=== PATIENT | female | born 1980 | race American Indian/Alaskan Native ===

== ENCOUNTER 2017-03-10 18:47 | Emergency (ER) | payer BC, OTHER ==
--- NOTE | 2017-03-10 18:59 | EDM.PDOC ---
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 poison control contacted and closest match is nortryptyline, rec' ekg for wide QRS. - Related Data Allergies Allergy/AdvReac Type Severity Reaction Status Date / Time Penicillins Allergy Hives Verified 03/10/17 20:32 Home Meds: Home Meds Acetaminophen [Tylenol Extra Strength] 1,000 mg PO Q8H PRN 05/16/13 [History] Social & Family History - Tobacco Use Second Hand Smoke Exposure: No - Recreational Drug Use Recreational Drug Use: No Review of Systems - Review of Systems Review Of Systems: ROS reveals no pertinent complaints other than HPI. ED EXAM, GENERAL - Physical Exam Exam: See Below Exam Limited By: No Limitations General Appearance: Alert, WD/WN, Mild Distress, Other (ankle pain) Ears: Hearing Grossly Normal Throat/Mouth: Normal Voice, No Airway Compromise Head: Atraumatic Neck: Non-Tender, Full Range of Motion Respiratory/Chest: No Respiratory Distress Cardiovascular: Regular Rate, Rhythm GI/Abdominal: Soft, Non-Tender Extremities: Other (right ankle swollen tender R/P, NV wnl, gait limited to pain ) Neurological: Alert, Oriented, Normal Cognition, No Motor/Sensory Deficits Psychiatric: Tearful Skin Exam: Warm, Dry, Normal Color Lymphatic: No Adenopathy Course - Vital Signs Last Recorded V/S: Last Vital Signs Temp 36.6 C 03/10/17 18:53 Pulse 87 03/10/17 18:53 Resp 18 03/10/17 18:53 BP 120/72 03/10/17 18:53 Pulse Ox 98 03/10/17 18:53 - Orders/Labs/Meds Orders: Active Orders 24 hr Category Date Time Status EKG 12 Lead [EKG Documentation Completion] [RC] STAT Care 03/10/17 19:10 Active DRUG SCREEN URINE BIORAD [URCHEM] Stat Lab 03/10/17 19:02 Ordered HCG QUALITATIVE,URINE [URCHEM] Stat Lab 03/10/17 19:02 Ordered UA W/O MICROSCOPIC [URIN] Stat Lab 03/10/17 19:02 Ordered Sodium Chloride 0.9% [Normal Saline] 1,000 ml Med 03/10/17 20:57 Active IV .BOLUS Medication Orders Sodium Chloride (Normal Saline) 1,000 mls @ 999 mls/hr IV .BOLUS ONE Stop: 03/10/17 21:57 Last Admin: 03/10/17 21:01 Dose: 999 mls/hr Labs: Laboratory Tests 03/10/17 03/10/17 Range/Units 19:20 19:20 WBC 8.6 (5.0-10.0) 10^3/uL RBC 4.40 (4.2-5.4) 10^6/uL Hgb 13.2 (12.0-16.0) g/dL Hct 40.2 (37.0-47.0) % MCV 91.4 (80-100) fL MCH 30.0 (27.0-34.0) pg MCHC 32.8 L (33.0-35.0) g/dL Plt Count 282 (150-450) 10^3/uL Neut % (Auto) 59.7 (42.2-75.2) % Lymph % (Auto) 29.9 (20.5-50.1) % [place] % (Auto) 6.7 (2-8) % Eos % (Auto) 3.5 H (1.0-3.0) % Baso % (Auto) 0.2 (0.0-1.0) % Sodium 142 (135-145) mmol/L Potassium 4.3 (3.6-5.0) mmol/L Chloride 104 (101-111) mmol/L Carbon Dioxide 26.0 (21.0-31.0) mmol/L Anion Gap 16.3 BUN 7 (7-18) mg/dL Creatinine 0.7 (0.6-1.3) mg/dL Est Cr Clr Drug Dosing 117.23 mL/min Estimated GFR (MDRD) > 60 BUN/Creatinine Ratio 10.00 Glucose 113 H (74-105) mg/dL Calcium 8.5 (8.4-10.2) mg/dl Total Bilirubin 0.6 (0.2-1.0) mg/dL AST 18 (10-42) IU/L ALT 26 (10-60) IU/L Alkaline Phosphatase 63 (42-121) IU/L Total Protein 7.9 (6.7-8.2) g/dl Albumin 4.2 (3.2-5.5) g/dl Globulin 3.7 Albumin/Globulin Ratio 1.14 Salicylates < 4 Acetaminophen < 10 Ethyl Alcohol 233 mg/dL Meds: Medications Generic Name Dose Route Start Last Admin Trade Name Freq PRN Reason Stop Dose Admin Sodium Chloride 1,000 mls @ 999 mls/hr 03/10/17 20:57 03/10/17 21:01 Normal Saline IV 03/10/17 21:57 999 mls/hr .BOLUS ONE Administration Discontinued Medications Generic Name Dose Route Start Last Admin Trade Name Freq PRN Reason Stop Dose Admin Metoclopramide HCl 10 mg 03/10/17 20:57 03/10/17 21:02 Reglan IVPUSH 03/10/17 20:58 10 mg ONETIME ONE Administration Ondansetron HCl 4 mg 03/10/17 20:40 03/10/17 20:43 Zofran IV 03/10/17 20:41 4 mg ONETIME ONE Administration - Re-Assessments/Exams Free Text/Narrative Re-Assessment/Exam: 03/10/17 20:55 -Crisis called, Kimberlyn called back, request to suicided watch & detox and will f /u in am due to pt being intox. 03/10/17 21:45 pt's sister arrived, situation of detox & suicide watch with H.F f/u in am explained and sister understands. Departure - Departure Time of Disposition: 21:46 Disposition: DC/Tfer to Court of Law En 21 Condition: Good Clinical Impression: Suicidal behavior Qualifiers: Attempted self-injury: with attempted self-injury Qualified Code(s): T14.91XA - Suicide attempt, initial encounter Sprain of right ankle Qualifiers: Encounter type: initial encounter Involved ligament of ankle: calcaneofibular ligament Qualified Code(s): S93.411A - Sprain of calcaneofibular ligament of right ankle, initial encounter Alcohol intoxication Qualifiers: Complication of substance-induced condition: uncomplicated Qualified Code(s): F10.920 - Alcohol use, unspecified with intoxication, uncomplicated - Discharge Information Forms: ED Department Discharge Additional Instructions: 1) ELEVATE RIGHT LEG MUCH POSSIBLE TONIGHT 2) [facility] "[facility]" WILL BE EVALUATING PATIENT TOMORROW MORNING 3) MEDICALLY CLEARED FOR DETOX. - My Orders Last 24 Hours: My Active Orders 03/10/17 19:02 DRUG SCREEN URINE BIORAD [URCHEM] Stat HCG QUALITATIVE,URINE [URCHEM] Stat UA W/O MICROSCOPIC [URIN] Stat 03/10/17 19:10 EKG 12 Lead [EKG Documentation Completion] [RC] STAT 03/10/17 20:57 Sodium Chloride 0.9% [Normal Saline] 1,000 ml IV .BOLUS - Assessment/Plan Last 24 Hours: My Active Orders 03/10/17 19:02 DRUG SCREEN URINE BIORAD [URCHEM] Stat HCG QUALITATIVE,URINE [URCHEM] Stat UA W/O MICROSCOPIC [URIN] Stat 03/10/17 19:10 EKG 12 Lead [EKG Documentation Completion] [RC] STAT 03/10/17 20:57 Sodium Chloride 0.9% [Normal Saline] 1,000 ml IV .BOLUS
[2017-03-10 19:44] LABS: CHLORIDE,CL 104 mmol/L (101-111); SODIUM,NA 142 mmol/L (135-145)
[2017-03-10 19:45] LABS: ACETAMINOPHEN < 10
[2017-03-10] MEDS ORDERED: Ondansetron 4 MG/2 ML SDV IV ONE (20:40)
[2017-03-10] MEDS ORDERED: Metoclopramide 10 MG/2 ML SDV IVPUSH ONE (20:57)
[2017-03-10] MEDS ORDERED: Sodium Chloride 0.9% 1,000 ML IV ONE (20:57)
--- NOTE | 2017-03-13 11:31 | EKG ---
03/10/2017 - CECY JUNIOR R - EKG shows normal sinus rhythm, rate is 85 per minute. [facility] /[id number]
== END 2017-03-10 21:53 ==
LOC: DL.ED 18:47
DX: T14.91XA Suicide attempt, initial encounter (principal); S93.411A Sprain of calcaneofibular ligament of right ankle, initial encounter; F10.920 Alcohol use, unspecified with intoxication, uncomplicated; Z88.0 Allergy status to penicillin
CPT/HCPCS: 36415; 73610; 80053; 85025; 93005; 96361; 96374; 96375; 99285; G0480; J2405; J2765; J7030

== ENCOUNTER 2020-01-09 18:19 | Emergency (ER) | payer SELFPAY ==
[2020-01-09] MEDS ORDERED: Clindamycin HCl 150 MG Cap PO ONE (18:51)
--- NOTE | 2020-01-09 18:54 | EDM.PDOC ---
ED HPI GENERAL MEDICAL PROBLEM - General Chief Complaint: Upper Extremity Injury/Pain Stated Complaint: LEFT HAND LOOKS LIKE HAS GLASS/WORMINMIDDLE FINGER Time Seen by Provider: 01/09/20 18:52 Source of Information: Reports: Patient History Limitations: Reports: No Limitations - History of Present Illness INITIAL COMMENTS - FREE TEXT/NARRATIVE: pt states picked up broken glass few days ago and got infected and did squeeze it and got out some white thing looks like a worm. 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: Musculoskeletal History: Reports: None Neurological History: Reports: None Psychiatric History: Reports: Anxiety, Depression Endocrine/Metabolic History: Reports: None Hematologic History: Reports: None Immunologic History: Reports: None Oncologic (Cancer) History: Reports: None Dermatologic History: Reports: None - Infectious Disease History Infectious Disease History: Reports: Chicken Pox - Past Surgical History Head Surgeries/Procedures: Reports: None HEENT Surgical History: Reports: None GI Surgical History: Reports: None Social & Family History - Family History Family Medical History: Noncontributory Cardiac: Reports: Hypertension Endocrine/Metabolic: Reports: Diabetes, Type I - Tobacco Use Smoking Status *Q: Current Every Day Smoker Years of Tobacco use: 1 Packs/Tins Daily: 0.5 Second Hand Smoke Exposure: No - Caffeine Use Caffeine Use: Reports: Soda - Recreational Drug Use Recreational Drug Use: No Review of Systems - Review of Systems Review Of Systems: Comprehensive ROS is negative, except as noted in HPI. ED EXAM, GENERAL - Physical Exam Exam: See Below Exam Limited By: No Limitations General Appearance: Alert, WD/WN, Anxious Ears: Hearing Grossly Normal Throat/Mouth: Normal Voice, No Airway Compromise Head: Atraumatic Neck: Non-Tender, Full Range of Motion Respiratory/Chest: No Respiratory Distress Cardiovascular: Regular Rate, Rhythm GI/Abdominal: Soft, Non-Tender Extremities: Other (left middle tip puncture infected, NV wnl, ) Neurological: Alert, Oriented, Normal Cognition, Normal Gait, No Motor/Sensory Deficits Psychiatric: Anxious Skin Exam: Warm, Dry, Normal Color Lymphatic: No Adenopathy Course - Vital Signs Last Recorded V/S: Last Vital Signs Temp 35.9 C L 01/09/20 18:26 Pulse 69 01/09/20 18:26 Resp 16 01/09/20 18:26 BP 126/76 01/09/20 18:26 Pulse Ox 100 01/09/20 18:26 - Orders/Labs/Meds Meds: Medications Discontinued Medications Generic Name Dose Route Start Last Admin Trade Name Freq PRN Reason Stop Dose Admin Clindamycin HCl 300 mg 01/09/20 18:51 Cleocin PO 01/09/20 18:52 ONETIME ONE Departure - Departure Time of Disposition: 18:59 Disposition: Home, Self-Care 01 Condition: Good Clinical Impression: Wound infection - Discharge Information Forms: ED Department Discharge Additional Instructions: 1) keep wound clean dry covered 2) follow up at clinic rx given; clindamycin 300mg qid x 40 Sepsis Event Note (ED) - Evaluation Sepsis Screening Result: No Definite Risk - Focused Exam Vital Signs: Vital Signs Temp Pulse Resp BP Pulse Ox 01/09/20 18:26 35.9 C L 69 16 126/76 100
== END 2020-01-09 19:05 | disposition home or self-care (01) ==
LOC: DL.ED 18:19
DX: S61.233A Puncture wound without foreign body of left middle finger without damage to nail, initial encounter (principal); L08.9 Local infection of the skin and subcutaneous tissue, unspecified; F17.210 Nicotine dependence, cigarettes, uncomplicated; Z88.0 Allergy status to penicillin; W25.XXXA Contact with sharp glass, initial encounter
CPT/HCPCS: 99282; A9270

== ENCOUNTER 2021-01-29 07:54 | Emergency (ER) | payer OTHER ==
[2021-01-29] MEDS ORDERED: Sodium Chloride 0.9% 1,000 ML IV ONE (08:28)
[2021-01-29] MEDS ORDERED: Sodium Chloride 0.9% 10 ML Syringe FLUSH PRN (08:28)
--- NOTE | 2021-01-29 08:36 | EDM.PDOC ---
ED HPI GENERAL MEDICAL PROBLEM - General Chief Complaint: Back Pain or Injury Stated Complaint: LOWER BACK PAIN Time Seen by Provider: 01/29/21 08:28 Source of Information: Reports: Patient History Limitations: Reports: No Limitations - History of Present Illness INITIAL COMMENTS - FREE TEXT/NARRATIVE: 40 y/o F c/o R lower back pn x 3-4 days. The pain is sharp constant and non radiating, 6/10. She is concerned that she is constipated. Had a small bowel movement 2 days ago but has not had a descent bowel movement in a week. She has tried laxatives with no relief. She is 22 weeks and reports no vitamins but states a Dr. Apurva Ruelas has been taking care of her during her . Has tried tylenol for pain with some success. . Has been feeling clammy the last few days. Denies fever, cough, chills, drugs, etoh, cp, db, abd pn, neck pn, pelvic pn, feeling of contractions, extremity pn. Duration: Day(s): Location: Reports: Back Quality: Reports: Sharp Severity: Moderate Improves with: Reports: None Worsens with: Reports: None Right Lower Back Pain Score (Numeric/FACES): 5 - Related Data Allergies Allergy/AdvReac Type Severity Reaction Status Date / Time Penicillins Allergy Hives Verified 01/29/21 08:12 Home Meds: Home Meds Acetaminophen [Tylenol Extra Strength] 1,000 mg PO Q8H PRN 05/16/13 [History] Past Medical History HEENT History: Reports: Impaired Vision, Sinusitis Cardiovascular History: Reports: None Respiratory History: Reports: None Gastrointestinal History: Reports: Other (See Below) Other Gastrointestinal History: umbilical hernia Genitourinary History: Reports: None 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: Musculoskeletal History: Reports: None Neurological History: Reports: None Psychiatric History: Reports: Anxiety, Depression Endocrine/Metabolic History: Reports: None Hematologic History: Reports: None Immunologic History: Reports: None Oncologic (Cancer) History: Reports: None Dermatologic History: Reports: None - Infectious Disease History Infectious Disease History: Reports: Chicken Pox - Past Surgical History Head Surgeries/Procedures: Reports: None HEENT Surgical History: Reports: None GI Surgical History: Reports: None Social & Family History - Family History Family Medical History: No Pertinent Family History Cardiac: Reports: Hypertension Endocrine/Metabolic: Reports: Diabetes, Type I - Tobacco Use Tobacco Use Status *Q: Current Every Day Tobacco User Years of Tobacco use: 2 Packs/Tins Daily: 1 - Caffeine Use Caffeine Use: Reports: Coffee - Recreational Drug Use Recreational Drug Use: No ED ROS GENERAL - Review of Systems Review Of Systems: Comprehensive ROS is negative, except as noted in HPI. ED EXAM,LOWER BACK PAIN/INJURY - Physical Exam Exam: See Below Exam Limited By: No Limitations General Appearance: Alert Throat/Mouth: Normal Inspection, Normal Lips, Normal Teeth, Normal Gums, Normal Oropharynx, Normal Voice, No Airway Compromise Head: Atraumatic, Normocephalic Neck: Normal Inspection, Supple, Non-Tender, Full Range of Motion Respiratory/Chest: No Respiratory Distress, Lungs Clear, Normal Breath Sounds, No Accessory Muscle Use, Chest Non-Tender Cardiovascular: Normal Peripheral Pulses, Regular Rate, Rhythm, No Edema, No Gallop, No JVD, No Murmur, No Rub GI/Abdominal: Soft, Non-Tender (Female) Exam: Deferred Rectal (Female) Exam: Deferred Back Exam: Other (No tenderness over the R lower back pt states the pain feels like it is on the inside.) Extremities: Normal Inspection, Normal Range of Motion, Non-Tender, No Pedal Edema, Normal Capillary Refill Neurological: Alert, Normal Mood/Affect Psychiatric: Normal Affect, Normal Mood Skin Exam: Warm, Dry, Intact Course - Vital Signs Last Recorded V/S: Last Vital Signs Temp 97.0 F 01/29/21 08:13 Pulse 90 01/29/21 08:13 Resp 18 01/29/21 08:13 BP 96/59 L 01/29/21 08:13 Pulse Ox 97 01/29/21 08:13 - Orders/Labs/Meds Orders: Active Orders 24 hr Category Date Time Status Peripheral IV Care [RC] . DIRECTED Care 01/29/21 08:28 Active CULTURE URINE [RM] Stat Lab 01/29/21 08:30 Received STD PANEL 3 [REF] Stat Lab 01/29/21 08:59 Ordered Sodium Chloride 0.9% [Normal Saline] 1,000 ml Med 01/29/21 08:28 Active IV .BOLUS Sodium Chloride 0.9% [Saline Flush] Med 01/29/21 08:28 Active 10 ml FLUSH ASDIRECTED PRN Peripheral IV Insertion Adult [OM.PC] Stat Oth 01/29/21 08:28 Ordered Medication Orders Sodium Chloride (Normal Saline) 1,000 mls @ 999 mls/hr IV .BOLUS ONE Stop: 01/29/21 09:28 Last Admin: 01/29/21 08:40 Dose: 999 mls/hr Documented by: PHAM Sodium Chloride (Sodium Chloride 0.9% 10 Ml Syringe) 10 ml FLUSH ASDIRECTED PRN PRN Reason: Keep Vein Open Last Admin: 01/29/21 08:40 Dose: 10 ml Documented by: PHAM Labs: Laboratory Tests 01/29/21 01/29/21 01/29/21 Range/Units 08:30 08:30 08:36 WBC 9.9 (5.0-10.0) 10^3/uL RBC 3.13 L (4.2-5.4) 10^6/uL Hgb 9.8 L (12.0-16.0) g/dL Hct 29.6 L (37.0-47.0) % MCV 94.6 D (80-100) fL MCH 31.3 (27.0-34.0) pg MCHC 33.1 (33.0-35.0) g/dL Plt Count 235 (150-450) 10^3/uL Neut % (Auto) 76.6 H (42.2-75.2) % Lymph % (Auto) 11.3 L (20.5-50.1) % [place] % (Auto) 11.5 H (2-8) % Eos % (Auto) 0.5 L (1.0-3.0) % Baso % (Auto) 0.1 (0.0-1.0) % Sodium (136-145) mmol/L Potassium (3.5-5.1) mmol/L Chloride (98-107) mmol/L Carbon Dioxide (21-32) mmol/L Anion Gap (7-13) mEq/L BUN (7-18) mg/dL Creatinine (0.55-1.02) mg/dL Est Cr Clr Drug Dosing mL/min Estimated GFR (MDRD) BUN/Creatinine Ratio (No establ ref range) Glucose (70-99) mg/dL Calcium (8.5-10.1) mg/dL Total Bilirubin (0.2-1.0) mg/dL AST (15-37) U/L ALT (14-59) U/L Alkaline Phosphatase (46-116) U/L Total Protein (6.4-8.2) g/dL Albumin (3.4-5.0) g/dL Globulin Albumin/Globulin Ratio Urine Color Yellow (YELLOW) Urine Appearance Cloudy (CLEAR) Urine pH 6.5 (5.0-9.0) Ur Specific [place] 1.025 (1.005-1.030) Urine Protein 30 H (NEGATIVE) Urine Glucose (UA) Negative (NEGATIVE) Urine Ketones Negative (NEGATIVE) Urine Occult Blood Moderate H (NEGATIVE) Urine Nitrite Negative (NEGATIVE) Urine Bilirubin Negative (NEGATIVE) Urine Urobilinogen 2.0 H (0.2-1.0) mg/dL Ur Leukocyte Esterase Small H (NEGATIVE) Urine RBC 5-10 H (0-5) /HPF Urine WBC 40-50 H (0-5/HPF) /HPF Ur Epithelial Cells Few (NOT SEEN) /HPF Amorphous Sediment Few (NOT SEEN) /HPF Urine Bacteria Many H (0-FEW/HPF) /HPF Urine Mucus Rare (NOT SEEN) /LPF Urine Opiates Screen Negative (NEGATIVE) Ur Oxycodone Screen Negative (NEGATIVE) Urine Methadone Screen Negative (NEGATIVE) Ur Barbiturates Screen Negative (NEGATIVE) U Tricyclic Antidepress Negative (NEGATIVE) Ur Phencyclidine Scrn Negative (NEGATIVE) Ur Amphetamine Screen Positive H (NEGATIVE) U Methamphetamines Scrn Positive H (NEGATIVE) Urine MDMA Screen Negative (NEGATIVE) U Benzodiazepines Scrn Negative (NEGATIVE) Urine Cocaine Screen Negative (NEGATIVE) U Marijuana (THC) Screen Negative (NEGATIVE) 01/29/21 Range/Units 08:36 WBC (5.0-10.0) 10^3/uL RBC (4.2-5.4) 10^6/uL Hgb (12.0-16.0) g/dL Hct (37.0-47.0) % MCV (80-100) fL MCH (27.0-34.0) pg MCHC (33.0-35.0) g/dL Plt Count (150-450) 10^3/uL Neut % (Auto) (42.2-75.2) % Lymph % (Auto) (20.5-50.1) % [place] % (Auto) (2-8) % Eos % (Auto) (1.0-3.0) % Baso % (Auto) (0.0-1.0) % Sodium 136 (136-145) mmol/L Potassium 3.4 L (3.5-5.1) mmol/L Chloride 103 (98-107) mmol/L Carbon Dioxide 25 (21-32) mmol/L Anion Gap 11.4 (7-13) mEq/L BUN 5 L (7-18) mg/dL Creatinine 0.59 (0.55-1.02) mg/dL Est Cr Clr Drug Dosing 135.11 mL/min Estimated GFR (MDRD) > 60 BUN/Creatinine Ratio 8.5 (No establ ref range) Glucose 98 (70-99) mg/dL Calcium 7.6 L (8.5-10.1) mg/dL Total Bilirubin 0.2 (0.2-1.0) mg/dL AST 11 L (15-37) U/L ALT 14 (14-59) U/L Alkaline Phosphatase 96 (46-116) U/L Total Protein 5.7 L (6.4-8.2) g/dL Albumin 1.8 L (3.4-5.0) g/dL Globulin 3.9 Albumin/Globulin Ratio 0.46 Urine Color (YELLOW) Urine Appearance (CLEAR) Urine pH (5.0-9.0) Ur Specific [place] (1.005-1.030) Urine Protein (NEGATIVE) Urine Glucose (UA) (NEGATIVE) Urine Ketones (NEGATIVE) Urine Occult Blood (NEGATIVE) Urine Nitrite (NEGATIVE) Urine Bilirubin (NEGATIVE) Urine Urobilinogen (0.2-1.0) mg/dL Ur Leukocyte Esterase (NEGATIVE) Urine RBC (0-5) /HPF Urine WBC (0-5/HPF) /HPF Ur Epithelial Cells (NOT SEEN) /HPF Amorphous Sediment (NOT SEEN) /HPF Urine Bacteria (0-FEW/HPF) /HPF Urine Mucus (NOT SEEN) /LPF Urine Opiates Screen (NEGATIVE) Ur Oxycodone Screen (NEGATIVE) Urine Methadone Screen (NEGATIVE) Ur Barbiturates Screen (NEGATIVE) U Tricyclic Antidepress (NEGATIVE) Ur Phencyclidine Scrn (NEGATIVE) Ur Amphetamine Screen (NEGATIVE) U Methamphetamines Scrn (NEGATIVE) Urine MDMA Screen (NEGATIVE) U Benzodiazepines Scrn (NEGATIVE) Urine Cocaine Screen (NEGATIVE) U Marijuana (THC) Screen (NEGATIVE) Meds: Medications Generic Name Dose Route Start Last Admin Trade Name Freq PRN Reason Stop Dose Admin Sodium Chloride 1,000 mls @ 999 mls/hr 01/29/21 08:28 01/29/21 08:40 Normal Saline IV 01/29/21 09:28 999 mls/hr .BOLUS ONE Administration Sodium Chloride 10 ml 01/29/21 08:28 01/29/21 08:40 Sodium Chloride 0.9% 10 Ml Syringe FLUSH 10 ml ASDIRECTED PRN Administration Keep Vein Open Discontinued Medications Generic Name Dose Route Start Last Admin Trade Name Freq PRN Reason Stop Dose Admin Acetaminophen 650 mg 01/29/21 09:10 Acetaminophen 325 Mg Tab PO 01/29/21 09:11 NOW ONE Azithromycin 1,000 mg 01/29/21 09:08 Azithromycin 250 Mg Tab PO 01/29/21 09:09 ONETIME ONE Ceftriaxone Sodium 1 gm/ 0 gm 01/29/21 09:07 Lidocaine HCl 2.1 ml IM 01/29/21 09:08 ONETIME ONE - Re-Assessments/Exams Free Text/Narrative Re-Assessment/Exam: 01/29/21 09:15 OB came down and examined pt cleared her obstetrically. heart tones 145. OB RN believes pts symptoms are unrelated to . Discussed exam adn lab results with pt. Will order an STD send out panel to make sure pt does not have an STD. Instructed mother to stop using meth as it harms the baby. I offered the pt referral to [facility] or [facility] for her meth use. She declined referral. Departure - Departure Time of Disposition: 09:19 Disposition: Home, Self-Care 01 Condition: Good Clinical Impression: Methamphetamine abuse, STD (sexually transmitted disease) complicating , antepartum Qualifiers: Weeks of gestation: 22 weeks Qualified Code(s): Z3A.22 - 22 weeks gestation of - Discharge Information *PRESCRIPTION DRUG MONITORING PROGRAM REVIEWED*: Not Applicable *COPY OF PRESCRIPTION DRUG MONITORING REPORT IN PATIENT BRENDA: Not Applicable Instructions: Finding Treatment for Addiction, Bacteremia, Adult Forms: ED Department Discharge Additional Instructions: RX: vitamins Stop using meth as it is hurting your baby and you. If you cant stop using meth contact [facility] or [facility]. Use Tylenol for pain as needed. Establish care with an OB doctor next week. If any new symptoms or concerns develop contact your primary care facility or return to the ER. Sepsis Event Note (ED) - Focused Exam Vital Signs: Vital Signs Temp Pulse Resp BP Pulse Ox 01/29/21 08:13 97.0 F 90 18 96/59 L 97
[2021-01-29 08:54] LABS: BARBITURATES,URINE NEGATIVE (NEGATIVE); BENZODIAZEPINE,URINE NEGATIVE (NEGATIVE); MDMA (ECSTASY), URINE NEGATIVE (NEGATIVE); METHADONE,URINE NEGATIVE (NEGATIVE); METHAMPHETAMINES,URINE POSITIVE (NEGATIVE); OPIATES,URINE NEGATIVE (NEGATIVE); TCA,URINE NEGATIVE (NEGATIVE)
[2021-01-29 08:55] LABS: AMPHETAMINES,URINE POSITIVE (NEGATIVE); OXYCODONE,URINE NEGATIVE (NEGATIVE); PHENCYCLIDINE,URINE NEGATIVE (NEGATIVE)
[2021-01-29 09:01] LABS: ANION GAP 11.4 mEq/L (7-13); CHLORIDE,CL 103 mmol/L (98-107); SODIUM,NA 136 mmol/L (136-145)
[2021-01-29] MEDS ORDERED: cefTRIAXone 1 GM, Lidocaine 1% 2.1 ML IM ONE ×2 (09:07)
[2021-01-29] MEDS ORDERED: Azithromycin 250 MG Tab PO ONE (09:08)
[2021-01-29] MEDS ORDERED: Acetaminophen 325 MG Tab PO ONE (09:10)
[2021-02-02 14:47] LABS: C.TRACHOMATIS BY TMA Negative (Negative); N.GONORRHOEAE BY TMA Negative (Negative)
== END 2021-01-29 09:40 | disposition home or self-care (01) ==
LOC: DL.ED 07:54
DX: O98.312 Other infections with a predominantly sexual mode of transmission complicating pregnancy, second trimester (principal); O99.322 Drug use complicating pregnancy, second trimester; F15.10 Other stimulant abuse, uncomplicated; Z3A.22 22 weeks gestation of pregnancy; Z72.0 Tobacco use; Z88.0 Allergy status to penicillin
CPT/HCPCS: 36415; 80053; 80305; 81001; 85025; 87086; 87088; 87186; 87491; 87563; 87591; 96372; 99283; A9270; J0696; J7030

== ENCOUNTER 2021-05-15 01:26 | Inpatient (IN) | payer MEDICAID, OTHER ==
[2021-05-15] MEDS ORDERED: Carboprost Tromethamine 250 MCG/1 ML Amp IM PRN (01:52)
[2021-05-15] MEDS ORDERED: Lidocaine 1% 30 ML SDV INJECT PRN (01:52)
[2021-05-15] MEDS ORDERED: Misoprostol 400 MCG (4 X 100 MCG TAB) RECTAL PRN (01:52)
[2021-05-15] MEDS ORDERED: Ondansetron 4 MG/2 ML SDV IVPUSH PRN (01:52)
[2021-05-15] MEDS ORDERED: Methylergonovine 0.2 MG/1 ML Amp IM PRN (01:52)
[2021-05-15] MEDS ORDERED: ceFAZolin 2 GM in Premix Bag 1 BAG IV ONE (01:52)
[2021-05-15] MEDS ORDERED: Acetaminophen 325 MG Tab PO PRN (01:52)
[2021-05-15] MEDS ORDERED: Tranexamic Acid 1,000 MG in Sodium Chloride 0.9% 100 ML IV PRN (01:52)
[2021-05-15] MEDS ORDERED: Lactated Ringers 1,000 ML IV ONE (01:52)
[2021-05-15] MEDS ORDERED: Lactated Ringers 1,000 ML IV SCH (02:00)
[2021-05-15 02:21] LABS: AMPHETAMINES,URINE NEGATIVE (NEGATIVE); BARBITURATES,URINE NEGATIVE (NEGATIVE); BENZODIAZEPINE,URINE NEGATIVE (NEGATIVE); MDMA (ECSTASY), URINE NEGATIVE (NEGATIVE); METHADONE,URINE NEGATIVE (NEGATIVE); METHAMPHETAMINES,URINE POSITIVE (NEGATIVE); OPIATES,URINE NEGATIVE (NEGATIVE); OXYCODONE,URINE NEGATIVE (NEGATIVE); PHENCYCLIDINE,URINE NEGATIVE (NEGATIVE); TCA,URINE NEGATIVE (NEGATIVE)
[2021-05-15] MEDS: Oxytocin/Normal Saline 30 UNIT/500 ML BAG IV SCH ×2 (03:00→07:10)
[2021-05-15] MEDS ORDERED: fentaNYL 100 MCG/2 ML SDV ITHECAL ONE (03:15)
[2021-05-15] MEDS ORDERED: Sodium Chloride 0.9% 20 ML SDV ONE (03:15)
[2021-05-15] MEDS ORDERED: Sodium Bicarbonate 4.2% 2.5 MEQ/5 ML SDV ONE ×2 (03:15→03:28)
[2021-05-15] MEDS ORDERED: EPINEPHrine 1 MG/ML SDV ONE ×2 (03:15→03:28)
--- NOTE | 2021-05-15 03:16 | HP ---
PATIENT IDENTIFICATION: Yareli Sales is a 41-year-old, -0-0-6, intrauterine 37 and 5/7 weeks by ultrasound done today when admitted with no care, who presents with contractions and vaginal leaking. HISTORY OF PRESENT ILLNESS: The patient notes vaginal leaking and contractions starting on the evening of 05/14/2021 at 8 p.m., increasing in frequency and intensity to the point that contractions are felt every 2-3 minutes, felt in the lower abdomen and back, rated 8/10, associated with vaginal leaking described as clear in nature and most recent with some mild bloody show noted per nurses and upon presentation. The patient presented via ambulance. To put this in context, she has had no care. Admits to meth use approximately 3-4 days prior to admission, and used meth 3-4 times per week on average smoking it. Records called for, reviewed as below, and supplemented by patient history. Antepartum labs are being drawn. OB HISTORY: 1. 05/03/2002, 40 weeks 2 days, delivered term, spontaneous vaginal delivery, 9 pounds 9 ounces. 2. 09/06/2005, 39 and 1/7 weeks, delivered term, 6 pounds 10 ounces. 3. 09/27/2006, 41 and 3/7 weeks, term, 8 pounds 3 ounces. 4. 08/22/2010, 40 and 4/7 weeks, delivered term, 9 pounds 1 ounce. 5. 11/22/2011, 41 weeks, delivered term, spontaneous vaginal delivery, female, 10 pounds 10 ounces. 6. 04/04/2018, 39 and 2/7 weeks, term, spontaneous vaginal delivery, 8 pounds 15 ounces, female. ALLERGIES: Penicillin, states this gives her hives, but has had Rocephin and Ancef per chart review and receiving Ancef currently. MEDICATIONS: None. PAST MEDICAL/PAST SURGICAL HISTORY: Notable for wisdom teeth extraction in 2007, otherwise she denies any other chronic medical conditions such as diabetes, heart disease, lung disease, asthma, liver disease, or any disease requiring medications for longer than a month or hospitalizations. Blood transfusion was noted at last delivery per patient. FAMILY HISTORY: Negative for anesthesia problems, bleeding problems, or defects. SOCIAL HISTORY: Patient lives in [place] with her 5 children and 2 cats. She does smoke 6 cigarettes per day on average and use methamphetamine as above. REVIEW OF SYSTEMS: Otherwise fully reviewed and felt to be contributory as above. Patient denies any headaches, visual changes, upper abdominal pain, calf pain, lower leg pain, cough, cold, sore throat, runny nose, congestion; and otherwise review of systems fully reviewed and felt to be contributory as above. OBJECTIVE: Vital Signs: Blood pressure 114/78, heart rate 68, temperature 97.5, recheck 125/86, heart rate 78. Appearance: Female, appears her stated age, acting appropriate, nontoxic in appearance. Breathing through her contractions, but answering questions appropriately in between. HEENT: Head atraumatic. EOMs intact. PERRLA. No scleral icterus. No obvious otorhinorrhea. Mucous membranes moist. NECK: No obvious tenderness. LUNGS: Clear to auscultation bilaterally. No increased work of breathing. HEART: S1, S2. Regular rate and rhythm. ABDOMEN: Gravid, Rex's indeterminate, nontender, nondistended. Bowel sounds positive. umbilical hernia noted. No rebound, rigidity, or guarding. I was present during the ultrasound, did review vertex presentation, posterior placenta, and average ultrasound, age at 37 and 5/7 weeks with head well applied into the pelvis. : Normal external female genitalia. Normal position and presentation. Vaginal exam after ultrasound revealed no previa, did reveal her to be 7-8 cm, 100% effaced, 0 station, vertex suspected, and leaking clear fluid with mild bloody show noted on the pad underneath her. Extremities: No peripheral edema. No calf pain. Deep tendon reflexes 2 to 3 out of 4 bilaterally and symmetric in all extremities. Psychiatric: Mood and affect congruent. Judgment and insight intact. Skin: No obvious cyanosis, clubbing, or jaundice. NST was found to be reactive and reassuring with heart tone, baseline around the 145 to 150 range. Tocometer reveals contractions every 2 to 3 minutes when monitoring. Labs; no care labs are pending. Ultrasound noted as above and reviewed with tech and present during the evaluation. ASSESSMENT: 1. Intrauterine at 37 and 5/7 weeks by ultrasound today. 2. Active labor. 3. No care. 4. Positive admitted methamphetamine use, last use 3-4 days ago, and prior to that 3-4 times per week, smoking it during the . 5. No care. 6. Group B streptococcus unknown - Ancef given currently. 7. Allergies to penicillin. 8. Advanced maternal age. 9. Grand multip. 10.-0-0-6. PLAN: No care labs have been drawn. Ultrasound done as above. Vaginal exam as above. She is in active labor with spontaneous rupture of membranes at approximately 8 p.m. on 05/14/2021. At this time, we will continue to follow clinically and closely. Plans were discussed with the patient. We are awaiting the COVID swab and then we will get her into a regular room and proceed with further evaluations and treatments there as well. The patient understands and agrees with the above treatment plan. [facility] /[id number] MTDD
[2021-05-15] MEDS ORDERED: fentaNYL 100 MCG/2 ML SDV ONE (03:27)
--- NOTE | 2021-05-15 03:50 | PCM.SN.2 ---
- Free Text/Narrative Note: Intrathecal. Sitting position, sterile prep and drape. 1% lidocaine w bicarb for skinwheal to L2 L3 interspace. Introducer, 24 ga Pencan x 1. Pos CSF, neg heme, neg parasthesia. 1:1000 pf Epi wash, 20 mcg pf Sufenta, 30 mcg pf Fentanyl, 0.4 ml pf NS and 6 mg of 0.75% Marcaine injected after CSF aspiration. Pt to L la teral position. Procedure time 0315 to 0350
--- NOTE | 2021-05-15 04:44 | US ---
PROCEDURE INFORMATION: Exam: US After First Trimester, Transabdominal Exam date and time: 05/15/2021 1:56 AM Age: 41 years old Clinical indication: Lmp or gestational age (in weeks): 08/22/20; Other: PT is in labor w/no care; TECHNIQUE: Imaging protocol: Real-time transabdominal obstetrical ultrasound of the maternal pelvis and a second or third trimester with image documentation. COMPARISON: No relevant prior studies available. FINDINGS: Other findings: A limited study was obtained as the patient was in labor. Gestation: Single live intrauterine gestation. heart rate: Good cardiac activity is recorded at 160 beats minute. presentation: Cephalic Placenta: The placenta is posterior with no evidence of previa Amniotic fluid: Not measured BIOMETRY: Estimated due date (AUA): 05/29/2021 Gestational age (AUA): 37 weeks 5 days Estimated weight: 3297 +/-481 g. LMP percentile is 56% Biparietal diameter (BPD): 9.21 cm, 37 weeks 3 days Head circumference (HC): 33.21 cm, 38 weeks MATERNAL: Uterus: Unremarkable. Cervix: Unremarkable. IMPRESSION: A single fetus is seen in cephalic presentation with a mean gestational age of 37 weeks 5 days and an estimated weight 3297 +/-481 g.
[2021-05-15] MEDS ORDERED: Simethicone 80 MG Tab.Chew PO PRN (05:07)
[2021-05-15] MEDS ORDERED: Zolpidem 5 MG Tab PO PRN (05:07)
[2021-05-15] MEDS ORDERED: Diphtheria,Pertussis(Acell),Tetanus Vaccine 0.5 ML Syringe IM ONE (05:07)
[2021-05-15] MEDS ORDERED: Benzocaine/Menthol 20%-0.5% Spray 78 GM Cannister TOP PRN (05:07)
[2021-05-15] MEDS ORDERED: Oxytocin 10 Units/1 ML SDV IM PRN (05:07)
--- NOTE | 2021-05-15 07:15 | OBOUT ---
DATE: 05/15/2021 DATE AND TIME OF NST: 05/15/2021, 1:25 to 1:45. REASON FOR NST: 1. Intrauterine at 37-5/7 weeks by ultrasound today. 2. Active labor. 3. Positive meth use, 3 to 4 days ago, and prior to this 3 to 4 times per week smoking it. 4. No care. 5. GBS unknown-Ancef given currently. 6. Allergy to penicillin, received Ancef and Rocephin in the past without reaction. 7. Advanced maternal age. 8. Grand multiparity. 9. G7, P6-0-0-6. NST INTERPRETATION: During this time period, heart tone baseline is approximately 145 and at least two 15 x 15 beats per minute accelerations making this strip reactive as well as reassuring. Tocometer reveals potential of 5 to 6 contractions felt by patient, breathing through them. ASSESSMENT/PLAN: 1. Nonstress test-reactive and reassuring. 2. Tocometer with contractions. PLAN: Please see other note with H and P for plan. [facility] /[id number]
[2021-05-15] MEDS: Prenatal Multivitamin with Calcium/Folic Acid/Iron Tab PO SCH (08:40)
[2021-05-15] MEDS: Ferrous Sulfate 325 MG Tab PO SCH (08:40)
[2021-05-15] MEDS: Docusate Sodium 100 MG Cap PO PRN ×2 (08:40→19:30)
[2021-05-15] MEDS: Ibuprofen 800 MG Tab PO PRN ×2 (08:40→19:30)
[2021-05-15] MEDS ORDERED: ceFAZolin 1 GM in Sodium Chloride 0.9% 100 ML IV SCH (10:00)
--- NOTE | 2021-05-16 06:06 | PN ---
DATE: 05/16/2021 SUBJECTIVE: day #1 status post spontaneous vaginal delivery complicated by uterine atony and hemorrhage with an EBL of 500 mL. Did receive TXA and Cytotec 800 mcg rectally as well as Pitocin per protocol and fundal massage. The patient is tolerating p.o., has ambulated, urinating. Pain is under control, and bleeding has been "normal" per the patient. OBJECTIVE: Vitals: Temperature 99.2, heart rate 51, blood pressure 107/67, respiratory rate 18. Appearance: Wakes appropriately. Answers questions appropriately. Lungs: Clear to auscultation bilaterally. No increased work of breathing. Heart: S1 and S2. Regular rate and rhythm. Abdomen: Firm uterus around the umbilicus with umbilical hernia noted. Extremities: No peripheral edema. No calf pain. Pending is a CBC today. ASSESSMENT: 1. day #1 status post spontaneous vaginal delivery complicated by uterine atony and hemorrhage noted as above. 2. History of methamphetamine use and positive drug screen upon admission. [employer] will be consulted. 3. Anemia of with hemoglobin on admission 10. Repeat CBC to be done today. Yesterday, it was done 6 hours after delivery and hemoglobin increased to 10.2, suspect hemoconcentration. We will evaluate CBC today and follow closely. No signs of anemia. Vital signs are stable. PLAN: We will proceed as above. Did discuss potential for discharge tomorrow. [facility] /[id number]
--- NOTE | 2021-05-16 07:48 | DEL ---
DATE: 05/15/2021 PREOPERATIVE DIAGNOSES: 1. Intrauterine at 37 and 5/7 weeks by ultrasound upon admission to the hospital. 2. Active labor. 3. No care. 4. Positive urine drug screen for methamphetamine use with the patient admitting to use 3 to 4 times per week with last use 3 to 4 days ago, and she was smoking it. 5. GBS unknown, Ancef given. 6. Penicillin allergy but has received Ancef and Rocephin in the past without issues. 7. Advanced maternal age. 8. Grand multiparity. 9. History of hemorrhage and atony with previous delivery. TXA prepped and given after cord clamping. 10.G7, P6-0-0-6. 11.Left labial varicosities noted in 2nd stage of labor. POSTOPERATIVE DIAGNOSES: 1. Intrauterine at 37 and 5/7 weeks by ultrasound upon admission to the hospital, delivered. 2. hemorrhage with EBL 500 mL. TXA given at cord clamp. 3. Uterine atony despite Pitocin per protocol and fundal massage. Cytotec 800 mcg was given rectally and improvement noted thereafter. 4. Active labor. 5. No care. 6. Positive urine drug screen for methamphetamine use with the patient admitting to use 3 to 4 times per week with last use 3 to 4 days ago, and she was smoking it. 7. GBS unknown, Ancef given. 8. Penicillin allergy but has received Ancef and Rocephin in the past without issues. 9. Advanced maternal age. 10.Grand multiparity. 11.History of hemorrhage and atony with previous delivery. TXA prepped and given after cord clamping. 12.G7, P6-0-0-6. 13.Left labial varicosities noted in 2nd stage of labor. PROCEDURES PERFORMED: Nonstress test followed by spontaneous vaginal delivery. ANESTHESIA/ANALGESIA: Patient did receive an intrathecal. EBL: 500 mL. FINDINGS: Female, score 8 and 9, weight 3365 g. SUMMARY OF EVENTS: The patient is a 41-year-old, G7, P6-0-0-6 Intrauterine at 37 and 5/7 weeks based on ultrasound when she presented to the hospital and was done, presented in active labor. No care. History of meth use as above with advanced maternal age being a G7, P6-0-0-6 with history of hemorrhage and atony with previous delivery after chart review. She was found to be initially 7 to 8 cm. Was put into the regular OB room after COVID test was negative and subsequently used Nitrox for pain initially and then received an intrathecal in the first stage of labor. She was found to be complete, and I was called to the room. I donned sterile gown and gloves and with the patient pushing, and between 1 and 2 contractions, vertex was delivered in LUIZ presentation, followed by anterior and posterior shoulder as well as rest of the infant without difficulty. Mouth and nares were suctioned. Cord was doubly clamped and cut. was resuscitated on mother's abdomen. Then, approximately 10 mL cord blood was obtained for labs. Placenta then delivered with gentle cord traction and fundal massage within 5 to 10 minutes. Perineum, vagina, and perirectal areas were examined without any tears or lacerations noted. TXA was given at cord clamp. Fundal massage ensued as well as Pitocin per protocol, and despite this, after delivery of placenta, atony was noted with increased bleeding. 800 mcg of Cytotec was called for and given rectally. Continued fundal massage ensued and bleeding decreased significantly. EBL was 500 mL. Mother and are currently stable at the time of dictation. [facility] /[id number] MTDD
[2021-05-16] MEDS: Docusate Sodium 100 MG Cap PO PRN ×2 (08:59→19:11)
[2021-05-16] MEDS: Ibuprofen 800 MG Tab PO PRN ×2 (08:59→19:11)
[2021-05-16] MEDS: Ferrous Sulfate 325 MG Tab PO SCH (08:59)
[2021-05-16] MEDS: Prenatal Multivitamin with Calcium/Folic Acid/Iron Tab PO SCH (08:59)
[2021-05-17] MEDS: Ibuprofen 800 MG Tab PO PRN (08:05)
[2021-05-17] MEDS: Docusate Sodium 100 MG Cap PO PRN (08:05)
[2021-05-17] MEDS: Ferrous Sulfate 325 MG Tab PO SCH (08:05)
[2021-05-17] MEDS: Prenatal Multivitamin with Calcium/Folic Acid/Iron Tab PO SCH (08:05)
--- NOTE | 2021-05-17 08:45 | DISCH ---
ADMITTING DIAGNOSES: 1. Intrauterine at 37 and 5/7 weeks by ultrasound upon admission. 2. Active labor upon admission. 3. No care. 4. GBS unknown, Ancef given. 5. Allergy to penicillin but has received Ancef and Rocephin with no reaction noted upon this admission. 6. Positive meth use admitted 3 to 4 days ago on positive urine drug screen for meth, admitting 3 to 4 times per week use via smoking. 7. Advanced maternal age. 8. Grand multiparity. 9. Spontaneous rupture of membranes. 10.G7, P6-0-0-6. DISCHARGE DIAGNOSES: 1. Intrauterine at 37 and 5/7 weeks by ultrasound upon admission, delivered. 2. History of hemorrhage and atony with previous . 3. hemorrhage with EBL 500 mL. Treated with TXA after cord clamp. 4. Uterine atony requiring 800 mcg of Cytotec rectally. 5. Labial varicosity on the left noted with serial evaluations during labor, stable. 6. Active labor upon admission. 7. No care. 8. GBS unknown, Ancef given. 9. Allergy to penicillin but has received Ancef and Rocephin with no reaction noted upon this admission. 10.Positive meth use admitted 3 to 4 days ago on positive urine drug screen for meth, admitting 3 to 4 times per week use via smoking. 11.Advanced maternal age. 12.Grand multiparity. 13.Spontaneous rupture of membranes. 14.G7, P6-0-0-6. PROCEDURE PERFORMED: Nonstress test followed by spontaneous vaginal delivery. Performed by Richar George MD. HISTORY OF PRESENT ILLNESS: Please see H and P. SUMMARY OF HOSPITAL COURSE: The patient was admitted on the above date with above diagnoses, underwent NST, was in active labor, went on to have a spontaneous vaginal delivery yielding a female with score of 8 and 9, weighing 3365 g. Please see delivery note for further details. EBL is 500 mL. Complicated by uterine atony. Cytotec was given rectally and TXA was given at cord clamp due to her history of hemorrhage and atony. day #1, please see progress note. day #2, date of discharge, the patient was tolerating p.o., ambulating, urinating, passing flatus, requesting discharge. Awaiting [employer] for baby's disposition. OBJECTIVE: Vital Signs: Temperature 98.1, heart rate 82, blood pressure 128/67, respiratory rate 16. Lungs: Clear to auscultation bilaterally. Heart: S1, S2. Regular rate and rhythm. Abdomen: Firm uterus around the umbilicus. Extremities: No peripheral edema. No calf pain. LABORATORY DATA: Labs followed, hemoglobin dropped down to lowest at 9.4 compared to predelivery hemoglobin of 10. CONDITION ON DISCHARGE COMPARED TO CONDITION ON ADMISSION: Improved. DISCHARGE INSTRUCTIONS: 1. Diet as tolerated. 2. Activity: No lifting more than 20 pounds. No sit-ups, straining. Pelvic rest for next 6 weeks with immediate return to fertility discussed with patient. 3. Reasons to return or go to the emergency room discussed with the patient in detail including but not limited to temperature greater than 100.4; foul- smelling discharge; red, hot, or tender breasts; or increased vaginal bleeding or increasing pain or any other concerns. DISCHARGE MEDICATIONS: Fwne-xlu-pivceec Tylenol and ibuprofen for pain. Iron sulfate 325 b.i.d. x6 weeks and vitamins x6 weeks. FOLLOWUP: 6 weeks . I did discuss the importance of followup and ramifications of not doing so both for herself and her baby. Did discuss with her followup with baby and she wishes to follow up in [facility]. An appointment will be made for 05/19/2021. I did discuss the importance of followup and ramifications of not doing so in regard to her baby as well. She understands and agrees with the above treatment plan. Please see discharge paperwork for further details as well. [facility] /[id number]
[2021-05-18 12:48] LABS: C.TRACHOMATIS BY TMA Negative (Negative); N.GONORRHOEAE BY TMA Negative (Negative)
== END 2021-05-17 14:44 | disposition home or self-care (01) | DRG 806 ==
LOC: DL.OBCHECK 01:26 → DL.OB 01:54 → OBSVTOIN 04:46
PROVIDERS: ADMIT Family Medicine; ATTEND Family Medicine
PROC: 10E0XZZ Delivery of Products of Conception, External Approach (ICD-10-PCS; principal; 2021-05-15)
PROC: 3E0R3BZ Introduction of Anesthetic Agent into Spinal Canal, Percutaneous Approach (ICD-10-PCS; 2021-05-15)
PROC: 00HU33Z Insertion of Infusion Device into Spinal Canal, Percutaneous Approach (ICD-10-PCS; 2021-05-15)
PROC: 3E02340 Introduction of Influenza Vaccine into Muscle, Percutaneous Approach (ICD-10-PCS; 2021-05-15)
DX: O99.02 Anemia complicating childbirth (principal); O72.1 Other immediate postpartum hemorrhage; Z37.0 Single live birth; O99.324 Drug use complicating childbirth; D64.9 Anemia, unspecified; F15.90 Other stimulant use, unspecified, uncomplicated; Z88.0 Allergy status to penicillin; Z3A.37 37 weeks gestation of pregnancy; Z20.822 Contact with and (suspected) exposure to COVID-19; Z23 Encounter for immunization
CPT/HCPCS: 01967; 36415; 59409; 76805; 80305-QW; 80307; 81001; 85027; 86592; 86762; 86803; 86850; 86900; 86901; 87081; 87210; 87340; 87389; 87491; 87591; 90471; 90715; A9270-GY; J0171; J0690; J2590; J3010; J7120; U0002